=== PATIENT | female | born 1950 | race Caucasian/White ===

== ENCOUNTER 2021-02-07 18:14 | Inpatient (IN) | payer OTHER ==
[2021-02-07 19:30] LABS: Absolute Lymphocytes (CBC) 1.2 K/uL (0.7-4.9); Basophils % 0.5 % (0-1.3); Hematocrit 40.9 % (36.0-45.0); Lymphocytes % 17.9 % (15.3-44.8); RBC Red Blood Cell Count 4.61 M/uL (3.86-4.86)
[2021-02-07 19:33] LABS: Urine Blood Negative (Negative); Urine Glucose Negative (Negative); Urine Protein 1+ (Negative); Urine Specific Gravity 1.025 (1.005-1.030)
[2021-02-07 19:46] LABS: Potassium 4.1 mmol/L (3.5-5.1)
--- NOTE | 2021-02-07 19:54 | RAD REPORT ---
EXAM DESCRIPTION: CT - Stone Protocol - 02/07/2021 7:44 pm CLINICAL HISTORY: Flank pain. FLANK PAIN COMPARISON: Abdomen Pelvis W Contrast dated 01/06/2018 TECHNIQUE: Axial images were obtained without oral or IV contrast. Lack of contrast limits solid org an and vascular assessment. The [id number] spans the entirety of the system partially obscuring uppermost abdomen and lung bases. Coronal reformatted images were obtained and reviewed. All CT scans are performed using dose optimization technique as appropriate and may include automated exposure control or mA/KV adjustment according to patient size. FINDINGS: The lower lung qiu are clear. Imaged portions of the liver and spleen show no suspicious findings on non-contrast imaging. The panc reas and adrenal glands are normal. No pathologic lymphadenopathy in the abdomen or pelvis. No urinary tract stones or obstructive uropathy. No bowel obstruction, free air, free fluid or abscess. Appendectomy.Aortoiliac atherosclerosis. Mild anterolisthesis of L5 on S1 with bilateral spondylolysis, chronic. IMPRESSION: No urinary tract stones or obstructive uropathy.
[2021-02-07 20:13] LABS: Urine Bacteria <20 /HPF (<20); Urine RBC <5 /HPF (NONE SEEN)
--- NOTE | 2021-02-07 20:22 | EDPHYS ---
Physician Documentation [facility] Name: Jaquelin Tamayo Age: 70 yrs Sex: Female : 1950 Arrival Date: 02/07/2021 Time: 18:17 Bed 12 Private MD: Misa Banks C ED Physician Cristian Yip HPI: 02/07 21:07 This 70 yrs old Female presents to ER via Ambulatory with complaints of kb Possible Kidney Stone. 21:07 The patient complains of pain in the right flank. The pain radiates to the right lower kb quadrant. Onset: The symptoms/episode began/occurred 5 day(s) ago, and became worse. Modifying factors: The symptoms are alleviated by nothing. the symptoms are aggravated by nothing. Associated signs and symptoms: The patient has no apparent associated signs or symptoms. Severity of pain: At its worst the pain was moderate in the emergency department the pain is unchanged. The patient has experienced similar episodes in the past, a few times. The patient has not recently seen a physician. Historical: - Allergies: 18:43 No Known Allergies; ld1 - Home Meds: 18:43 aspirin 81 mg Oral chew 1 tab once daily [Active]; levothyroxine 112 mcg tab 1 tab once ld1 daily [Active]; metoprolol tartrate 50 mg Oral tab 1 tab once daily [Active]; omeprazole 40 mg Oral cpDR 1 cap once daily [Active]; zolpidem 5 mg Oral tab 1 tab once daily [Active]; ezetimibe 10 mg oral tab 1 tab once daily [Active]; losartan-hydrochlorothiazide 100-25 mg oral tab 1 tab once daily [Active]; famotidine 40 mg oral tab 1 tab once daily [Active]; escitalopram oxalate 10 mg oral tab 1 tab once daily [Active]; melatonin 5 mg Oral tab [Active]; alprazolam 0.25 mg Oral tab 1 tab 3 times per day [Active]; - PMHx: 18:43 GERD; Hypertension; Hypothyroidism; ld1 - Immunization history:: Adult Immunizations up to date, Client reports receiving the 2nd dose of the Covid vaccine, Pneumococcal vaccine is up to date. - Social history:: Smoking status: unknown. ROS: 21:06 Constitutional: Negative for fever, chills, and weight loss. kb 21:06 Back: Positive for flank pain, on the right. 21:06 All other systems are negative. Exam: 21:06 Constitutional: This is a well developed, well nourished patient who is awake, alert, kb and in no acute distress. Head/Face: Normocephalic, atraumatic. ENT: Moist Mucous membranes Respiratory: Respirations even and unlabored. No increased work of breathing, no retractions or nasal flaring. Skin: Warm, dry with normal turgor. Normal color. MS/ Extremity: Pulses equal, no cyanosis. Neurovascular intact. Full, normal range of motion. Neuro: Awake and alert, GCS 15, oriented to person, place, time, and situation. Moves all extremities. Normal gait. Psych: Awake, alert, with orientation to person, place and time. Behavior, mood, and affect are within normal limits. 21:06 Abdomen/GI: Inspection: abdomen appears normal, Bowel sounds: normal, in all quadrants, Palpation: soft, in all quadrants, mild abdominal tenderness, in the right lower quadrant. 21:06 Back: CVA tenderness, that is moderate, is noted on the right. Vital Signs: 18:40 BP 166 / 100; Pulse 72; Resp 18; Temp 97.8(O); Pulse Ox 97% on R/A; Weight 74.84 kg; ld1 Height 5 ft. 2 in. (157.48 cm); Pain 6/10; 23:00 BP 144 / 76; Pulse 60; Resp 16; Pulse Ox 98% ; Pain 0/10; fu 23:34 BP 135 / 66; Pulse 59; Resp 19; Temp 98.4(O); Pulse Ox 99% on R/A; Pain 1/10; fu 18:40 Body Mass Index 30.18 (74.84 kg, 157.48 cm) ld1 MDM: 19:07 Patient medically screened. patrick 20:19 Data reviewed: vital signs, nurses notes. Data interpreted: Pulse oximetry: on room air kb is 97 %. Interpretation: normal. Counseling: I had a detailed discussion with the patient and/or guardian regarding: the historical points, exam findings, and any diagnostic results supporting the discharge/admit diagnosis, lab results, radiology results, the need for further work-up and treatment in the hospital. Physician consultation: Misa Banks MD was contacted at 20:20, regarding admission, to the telemetry unit. patient's condition, and will see patient in inpatient room. 02/07 18:51 Order name: Urine Microscopic Only; Complete Time: 20:15 kb 02/07 18:51 Order name: Basic Metabolic Panel; Complete Time: 19:49 kb 02/07 18:51 Order name: CBC with Diff; Complete Time: 19:49 kb 02/07 19:32 Order name: Urine Dipstick-Ancillary; Complete Time: 19:35 EDMS 02/07 20:09 Order name: Urine Osmolality 02/07 20:09 Order name: Osmolality, Urine; Complete Time: 20:58 EDMS 02/07 18:51 Order name: CT Stone Protocol; Complete Time: 19:57 kb 02/07 20:11 Order name: UR SODIUM EDMS 02/07 20:11 Order name: Osmolality, Serum; Complete Time: 21:54 EDMS 02/07 20:15 Order name: COVID-19 SARS RT PCR (Document "Date of Onset" if Symptomatic) 02/07 20:17 Order name: SARS-COV-2 RT PCR; Complete Time: 21:54 EDMS 02/07 18:51 Order name: Urine Dipstick-Ancillary (obtain specimen); Complete Time: 19:28 kb 02/07 18:51 Order name: IV Saline Lock; Complete Time: 19:28 kb 02/07 18:51 Order name: Labs collected and sent; Complete Time: 19:28 kb Administered Medications: 20:42 Drug: morphine 4 mg Route: IVP; Site: left antecubital; ja3 22:20 Follow up: Response: Pain is decreased ja3 20:42 Drug: Zofran (Ondansetron) 4 mg Route: IVP; Site: left antecubital; ja3 22:19 Follow up: Response: No adverse reaction ja3 20:43 Drug: NS 0.9% 1000 ml Route: IV; Rate: 75 ml/hr; Site: left antecubital; ja3 Disposition Summary: 02/07/21 20:20 Hospitalization Ordered Hospitalization Status: Inpatient Admission kb Provider: Misa Banks Location: Telemetry/[facility] (Inpatient) kb Condition: Stable kb Problem: new kb Symptoms: are unchanged kb Bed/Room Type: Standard Room Assignment: 231(02/07/21 22:50) cg Diagnosis - flank pain kb - hyponatremia kb Forms: - Medication Reconciliation Form kb - SBAR form kb Addendum: 02/09/2021 09:05 Co-signature as Attending Physician, Cristian Yip MD I agree with the assessment and c olmos plan of care. Signatures: Dispatcher [employer] EDSC Angelica Knight, THERESA-C [employer] COOK-Cristian Dawkins MD MD cha Garcia, Cindy, RN RN Shaggy Boyce RN RN fu Dibbern, Lauren, RN RN ld1 Ismael Jacobs RN RN ja3 Corrections: (The following items were deleted from the chart) 02/07 18:46 18:43 Home Meds: hydrochlorothiazide 25 mg Oral tab 1 tab once daily; ld1 ld1 22:50 20:20 kb
--- NOTE | 2021-02-07 20:22 | ER ---
Nurse's Notes [facility] Name: Jaquelin Tamayo Age: 70 yrs Sex: Female : 1950 Arrival Date: 02/07/2021 Time: 18:17 Bed 12 Private MD: Misa Banks C Diagnosis: flank pain;hyponatremia Presentation: 02/07 18:40 Chief complaint: Patient states: "I think I am passing a kidney stone." Pt reporting ld1 right flank pain and RLQ pain. Difficulty urinating and retention. Coronavirus screen: At this time, the client does not indicate any symptoms associated with coronavirus-19. Ebola Screen: No symptoms or risks identified at this time. Initial Sepsis Screen: Does the patient meet any 2 criteria? No. Patient's initial sepsis screen is negative. Does the patient have a suspected source of infection? No. Patient's initial sepsis screen is negative. Risk Assessment: Do you want to hurt yourself or someone else? Patient reports no desire to harm self or others. Onset of symptoms was February 07, 2021. 18:40 Method Of Arrival: Ambulatory ld1 18:40 Acuity: CRUZ 3 ld1 Triage Assessment: 18:43 General: Appears in no apparent distress. comfortable, Behavior is calm, cooperative, ld1 appropriate for age. Pain: Complains of pain in right low back and right lower quadrant Pain does not radiate. Pain currently is 7 out of 10 on a pain scale. Quality of pain is described as sharp, throbbing. Neuro: Level of Consciousness is awake, alert, obeys commands, Oriented to person, place, time, situation. Cardiovascular: Capillary refill < 3 seconds Patient's skin is warm and dry. Respiratory: Airway is patent Respiratory effort is even, unlabored, Respiratory pattern is regular, symmetrical. GI: Abdomen is round non-distended. : Reports urgency, urinary frequency. Historical: - Allergies: 18:43 No Known Allergies; ld1 - Home Meds: 18:43 aspirin 81 mg Oral chew 1 tab once daily [Active]; levothyroxine 112 mcg tab 1 tab once ld1 daily [Active]; metoprolol tartrate 50 mg Oral tab 1 tab once daily [Active]; omeprazole 40 mg Oral cpDR 1 cap once daily [Active]; zolpidem 5 mg Oral tab 1 tab once daily [Active]; ezetimibe 10 mg oral tab 1 tab once daily [Active]; losartan-hydrochlorothiazide 100-25 mg oral tab 1 tab once daily [Active]; famotidine 40 mg oral tab 1 tab once daily [Active]; escitalopram oxalate 10 mg oral tab 1 tab once daily [Active]; melatonin 5 mg Oral tab [Active]; alprazolam 0.25 mg Oral tab 1 tab 3 times per day [Active]; - PMHx: 18:43 GERD; Hypertension; Hypothyroidism; ld1 - Immunization history:: Adult Immunizations up to date, Client reports receiving the 2nd dose of the Covid vaccine, Pneumococcal vaccine is up to date. - Social history:: Smoking status: unknown. Screenin:33 Abuse screen: Denies threats or abuse. Nutritional screening: No deficits noted. fu Tuberculosis screening: No symptoms or risk factors identified. Fall Risk None identified. Assessment: 19:33 General: Appears in no apparent distress. Behavior is calm, cooperative, appropriate fu for age. Pain: Complains of pain in abdomen and back and right lower quadrant and right low back Pain radiates to right leg Aggravated by movement. Neuro: Level of Consciousness is awake, alert, obeys commands, Oriented to person, place, time, situation, Moves all extremities. Gait is steady, Speech is normal, Facial symmetry appears normal. GI: Bowel sounds present X 4 quads. Abd is soft. : Reports difficulty voiding. Derm: Skin is intact, Skin is dry, Skin is pink, warm \\T\\ dry. Skin temperature is warm. 21:18 Reassessment: Patient and/or family updated on plan of care and expected duration. Pain ja3 level reassessed. Patient is alert, oriented x 3, equal unlabored respirations, skin warm/dry/pink. 22:42 Reassessment: Patient and/or family updated on plan of care and expected duration. Pain fu level reassessed. Patient is alert, oriented x 3, equal unlabored respirations, skin warm/dry/pink. Patient states feeling better. Vital Signs: 18:40 BP 166 / 100; Pulse 72; Resp 18; Temp 97.8(O); Pulse Ox 97% on R/A; Weight 74.84 kg; ld1 Height 5 ft. 2 in. (157.48 cm); Pain 6/10; 23:00 BP 144 / 76; Pulse 60; Resp 16; Pulse Ox 98% ; Pain 0/10; fu 23:34 BP 135 / 66; Pulse 59; Resp 19; Temp 98.4(O); Pulse Ox 99% on R/A; Pain 1/10; fu 18:40 Body Mass Index 30.18 (74.84 kg, 157.48 cm) ld1 ED Course: 16:15 Inserted saline lock: 20 gauge in left antecubital area, using aseptic technique. Blood fu collected. 18:17 Patient arrived in ED. as 18:17 Misa Banks MD is Private Physician. as 18:43 Triage completed. ld1 18:43 Arm band placed on left wrist. ld1 18:51 Angel[facility]C [facility]. kb 18:51 Cristian Yip MD is Attending Physician. kb 19:09 Shaggy Jones RN is Primary Nurse. fu 19:44 CT Stone Protocol In Process Unspecified. EDMS 20:20 Misa Banks MD is Hospitalizing Provider. kb 20:25 Urine Osmolality Sent. ja3 20:25 UR SODIUM Sent. ja3 20:42 COVID-19 SARS RT PCR (Document "Date of Onset" if Symptomatic) Sent. ja3 22:00 Patient has correct armband on for positive identification. Bed in low position. Call ja3 light in reach. 22:16 No provider procedures requiring assistance completed. Patient did not have IV access ja3 during this emergency room visit. Administered Medications: 20:42 Drug: morphine 4 mg Route: IVP; Site: left antecubital; ja3 22:20 Follow up: Response: Pain is decreased ja3 20:42 Drug: Zofran (Ondansetron) 4 mg Route: IVP; Site: left antecubital; ja3 22:19 Follow up: Response: No adverse reaction ja3 20:43 Drug: NS 0.9% 1000 ml Route: IV; Rate: 75 ml/hr; Site: left antecubital; ja3 Outcome: 20:20 Decision to Hospitalize by Provider. kb 23:33 Admitted to Med/surg accompanied by tech, room 231, Report called to SEN Bradshaw fu 23:33 Condition: stable 23:33 Instructed on the need for admit, Demonstrated understanding of instructions. 1103 00:34 Patient left the ED. ja3 Signatures: Dispatcher [employer] EDMS Flavio Knightistin, THERESA-Joni CARDEANS-Fabi Gilliam Felix RN Marta Crenshaw RN RN ld1 Ismael Jacobs RN RN ja3 Corrections: (The following items were deleted from the chart) 02/07 18:43 18:40 Pulse 72bpm; Resp 18bpm; Pulse Ox 97% RA; Temp 97.8F Oral; 74.84 kg; Height 5 ft. ld1 2 in.; BMI: 30.1; Pain 6/10; ld1 18:46 18:43 Home Meds: hydrochlorothiazide 25 mg Oral tab 1 tab once daily; ld1 ld1 22:17 22:15 Discharged to home ambulatory, ja3 ja3 22:17 22:15 Condition: good ja3 ja3 22:17 22:15 Discharge instructions given to patient, Instructed on discharge instructions, ja3 follow up and referral plans. Demonstrated understanding of instructions, follow-up care, Prescriptions given X 1, ja3
[2021-02-07] MEDS ORDERED: ONDANSETRON 4 MG/2 ML VIAL ONE (20:35)
[2021-02-07] MEDS ORDERED: MORPHINE 4 MG/ML SYR ONE (20:35)
[2021-02-07] MEDS ORDERED: NA CHLORIDE 0.9% 1,000 ML ONE (20:35)
[2021-02-07] MEDS ORDERED: ONDANSETRON 4 MG/2 ML VIAL IV PRN (23:56)
[2021-02-07] MEDS: NA CHLORIDE 0.9% 1,000 ML IV SCH (23:56)
[2021-02-08 01:51] VITALS: BMI 30.2
[2021-02-08 05:47] LABS: Absolute Lymphocytes (CBC) 1.4 K/uL (0.7-4.9); Basophils % 0.4 % (0-1.3); Hematocrit 35.3 % (36.0-45.0); Lymphocytes % 22.6 % (15.3-44.8); MPV 5.9 fL (7.6-11.3); RBC Red Blood Cell Count 3.96 M/uL (3.86-4.86)
[2021-02-08 06:08] LABS: Potassium 3.8 mmol/L (3.5-5.1); Thyroid Stimulating Hormone 5.63 uIU/mL (0.360-3.740)
[2021-02-08] MEDS ORDERED: COSYNTROPIN 0.25 MG VIAL IV ONE (08:00)
[2021-02-08] MEDS ORDERED: SODIUM CHLORIDE 0.9% 10ML INJ IV ONE (08:00)
[2021-02-08] MEDS: ASPIRIN EC 81 MG TAB PO SCH (08:46)
[2021-02-08] MEDS: METOPROLOL TAR 50 MG TAB PO SCH ×2 (08:46→21:14)
[2021-02-08] MEDS: ENOXAPARIN 40 MG/0.4 ML SQ SCH (08:46)
[2021-02-08] MEDS: ESCITALOPRAM 20 MG TAB PO SCH (08:47)
[2021-02-08] MEDS: EZETIMIBE 10 MG TAB PO SCH (08:47)
[2021-02-08] MEDS: FAMOTIDINE 20 MG TAB PO SCH (08:48)
[2021-02-08] MEDS: NA CHLORIDE 0.9% 1,000 ML IV SCH (09:06)
[2021-02-08 09:53] LABS: Albumin 3.6 g/dL (3.4-5.0); Bilirubin Total 0.6 mg/dL (0.2-1.0); Potassium 3.5 mmol/L (3.5-5.1); Protein, Total 7.1 g/dL (6.4-8.2)
--- NOTE | 2021-02-08 10:56 | RAD REPORT ---
EXAM DESCRIPTION: Lee Mccracken (2 Views)02/08/2021 10:44 am CLINICAL HISTORY: hyponatremia COMPARISON: 2014 FINDINGS: The lungs appear clear of acute infiltrate. The heart is normal size IMPRESSION: No acute abnormalities displayed
--- NOTE | 2021-02-08 12:30 | CON ---
Date of Consultation: 02/08/2021 Reason For Consultation: Abdominal pain. History Of Present Illness: The patient is a 70-year-old female, who came in yesterday with right fl ank pain, radiating to the right lower abdomen, going to the thigh, which was started approximately 5 days ago and progressively gotten worse. She denies any nausea or vomiting. No diarrhea or constip ation. No blood in her stools. No hematuria. Minimal dysuria. No sore throat, runny nose, cough, headaches, or dizziness. No chest pain. No fever or chills. Review of Systems: Otherwise unremarkable. Past Medical History: Significant for hypertension, hypothyroidism, and GERD. Past Surgical History: Significant for hysterectomy, appendectomy, and tonsillectomy. Allergies: NONE. Social History: The patient used to be a former smoker for about 24 years about a pack a day and she drinks occasionally. Family History: Noncontributory. Physical Examination: Vital Signs: Currently stable. She is afebrile. General: She is awake, alert, and oriented x3. Head and Neck: Cranial nerves 2 through 12 are grossly within normal limits. No neck masses. No JV D. Throat clear. Neck is supple. Chest: Clear. Heart: S1, S2. Abdomen: Soft, nondistended, nontender. Positive bowel sounds. No CVA tenderness. Extremities: Adequately perfused. Nontender. Neuro: Nonfocal. Laboratory Data: Reviewed. White count is normal. There is no left shift. Chemistry shows sodium of 124 which is being corrected. Urinalysis is negative except for a little bit of 1+ protein. COVI D test was negative. CT of the abdomen and pelvis reviewed with radiologist as well as the MRA done a few years back. The CT shows no urinary tract stones or obstructive uropathy. It was a stone prot ocol. 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 Assessment: A 70-year-old female with multiple medical problems with abdominal pain, hyponatremia, e tiology could be adhesions, could be ischemic bowel given her history of stenosis of the mesenteric v essels. Recommendations: Medical management per Dr. Banks and Lucinda will go and order an MRA to see her current s tatus as far as the stenosis of the mesentery vessels or concerns to see if she needs any interventio n regarding that. At this time, there is no need for any acute surgical intervention. We will follo w the patient while in the hospital. /MODL Voice ID: [id number] Report ID: [id number]
--- NOTE | 2021-02-08 12:55 | RAD REPORT ---
EXAM DESCRIPTION: MRI - MRA Abdomen W/Wo Cont - 02/08/2021 12:10 pm CLINICAL HISTORY: see blood vessels in the abdomen COMPARISON: MRA Abdomen W/Wo Cont dated 11/01/2016; Stone Protocol dated 02/07/2021 FINDINGS: Moderate focal stenosis of the right renal artery approximately 3 cm from the renal ostia. The left renal artery is widely patent. Moderate stenosis is present at the celiac trunk, presumably due to compression by the median arcuate ligament. There is very mild poststenotic dilatation. Mild less than 50% stenosis is present at the SMA. No high-grade stenosis is noted. The MARKO is patent. The re is some ectasia of the iliac vessels but no aneurysm. The abdominal aorta atherosclerotic plaque a long its course, particularly in the infrarenal portion but no aneurysm. IMPRESSION: No high grade stenoses identified. Findings are as noted above. No aneurysm.
[2021-02-08] MEDS: MORPHINE 4 MG/ML SYR IV PRN ×2 (18:22→22:54)
[2021-02-08 19:54] LABS: Absolute Lymphocytes (CBC) 1.4 K/uL (0.7-4.9); Basophils % 0.6 % (0-1.3); Hematocrit 35.7 % (36.0-45.0); Lymphocytes % 20.8 % (15.3-44.8); MPV 6.1 fL (7.6-11.3); RBC Red Blood Cell Count 3.98 M/uL (3.86-4.86)
[2021-02-08 20:07] LABS: Potassium 4.2 mmol/L (3.5-5.1)
[2021-02-08] MEDS ORDERED: FUROSEMIDE 20 MG/ 2ML VIAL IV ONE (20:19)
[2021-02-09] MEDS: NA CHLORIDE 0.9% 1,000 ML IV SCH (00:48)
[2021-02-09] MEDS ORDERED: LEVOTHYROXINE SOD 0.125 MG TAB PO SCH (06:00)
[2021-02-09 06:06] LABS: Potassium 3.9 mmol/L (3.5-5.1)
--- NOTE | 2021-02-09 08:41 | RAD REPORT ---
EXAM DESCRIPTION: MRI - Lumbar Spine Wo Con - 02/09/2021 8:17 am CLINICAL HISTORY: Radiculopathy and back pain COMPARISON: None. TECHNIQUE: Sagittal T1, T2 and STIR weighted sequences were obtained. Axial T1 and T2 sequences were obtained through the lumbar disc levels. FINDINGS: Small right lateral disc herniation L1-2 A small right lateral disc herniation L2-3. Abnormal signal involves the vertebral endplates of L2 on L3 probably degenerative. Mild spondylosis L3-4 disc is thinned. Diffuse disc bulge, osteophytes, ligamentum flavum and facet hypertrophy. Small right lateral disc herniation. Moderate narrowing the right neural foramina. Small right paracentral disc pain medel L4-5. Ligamentum flavum and facet hypertrophy. Disc bulge. Mil d narrowing of the thecal sac. Mild to moderate narrowing of the neural foramina. Abnormal signal inv olves the vertebral endplates of L4 and L5. Mild anterior subluxation of L5 on S1. Spondylolysis. Disc is thinned. Disc bulge. Mild narrowing of the neural foramina. IMPRESSION: Small right lateral disc herniations L1-2 and L2-3 Small right lateral disc herniation L3-4. This in combination with spondylosis result in moderate rig ht foraminal stenosis Small right paracentral disc herniation L4-5. Abnormal signal involving the vertebral endplates proba cynthia degenerative in nature. Inflammation/infection can also have this appearance and should be correl ated clinically and with appropriate lab values Mild anterior subluxation of L5 on S1 with spondylolysis L5.
[2021-02-09 09:08] VITALS: O2SAT 98
[2021-02-09] MEDS: FAMOTIDINE 20 MG TAB PO SCH (10:49)
[2021-02-09] MEDS: ESCITALOPRAM 20 MG TAB PO SCH (10:49)
[2021-02-09] MEDS: METOPROLOL TAR 50 MG TAB PO SCH (10:49)
[2021-02-09] MEDS: ASPIRIN EC 81 MG TAB PO SCH (10:49)
[2021-02-09] MEDS: EZETIMIBE 10 MG TAB PO SCH (10:49)
[2021-02-09] MEDS: ENOXAPARIN 40 MG/0.4 ML SQ SCH (10:50)
[2021-02-09 12:59] VITALS: BP 126/83; TEMP 97
--- NOTE | 2021-02-09 16:07 | PN ---
Date of Progress Note: 02/09/2021 Subjective: The patient is awake, alert, feels much better. Pain is better. MRA reviewed, no signi ficant stenosis noted. Lumbar MRI also reviewed, mild disease present. Physical exam notes, vital stable, afebrile. Physical exam, no changes. Assessment: Abdominal pain etiology could be adhesions at this time or could be radiculopathy. I di scussed the case with Dr. Kaur, he is going to try a Medrol Dosepak and see how the patient responds and he will follow up with her as an outpatient. There is no need for any surgical intervention at this time. We counseled juan BOYCE/KARIME Voice ID: [id number] Report ID: [id number]
--- NOTE | 2021-02-10 17:26 | DS ---
Date of Discharge: 02/09/2021 Disposition: Discharged to go home. Physical Examination: HEENT: Unremarkable. Lungs: Clear to auscultation. Heart: Sounds normal. Abdomen: Soft. Bowel sounds normal. No guarding, rigidity, tenderness, distention noted. The antonio ent has very minimal area of tenderness in the right lower quadrant, which is much better today than yesterday. Extremities: No leg edema. Discharge Medications And Instructions: 1.Continue all prior home medication except stop losartan/HCTZ. 2.Follow up at my office next week on 02/15/2021 at 10 a.m. 3.Take prednisone 10 mg take 2 tablets 2 times a day for 4 days, then 2 tablets daily for 4 days, th en 1 tablet daily for 4 days, then 1/2 tablet daily for 4 days, then stop; take it with food. 4.Tylenol 4 times a day as needed for pain and the patient picked up this prescription from my offic e after discharged from the hospital and prescription was given for 30 tablets, no refills. Laboratory Data: Last chemistry today; sodium 129, potassium 3.9, chloride 96, bicarb 28, BUN 13, cr eatinine 0.74, glucose 93. Upon admission, her sodium level was 124. Her serum osmolality 259. TSH 5.6, LDL 72, triglycerides 73. Cortisol stimulation test was normal. Last CBC from yesterday; whit e count 6.7, hemoglobin 12.3, platelets 285. MRA of abdomen shows evidence of right renal artery siria nosis. Also some stenosis of the superior mesenteric artery and celiac trunk. There was no evidence of any hemodynamically significant stenotic lesion. MRI of lumbar spine shows evidence of lumbar sp ondylosis with multiple areas of bulging disk and herniated disk. Hospital Course: A 70-year-old female patient admitted to the hospital with complaints of right lowe r quadrant pain and also pain in right lateral flank radiating down to right lateral thigh. Please s ee dictated H and P for more information. After patient was evaluated in the ER, she was admitted to the hospital. CAT scan of the abdomen done in the emergency room was unremarkable for any acute fin dings. Because of her right lower quadrant tenderness, general surgeon, Dr. Lopez was consulted and he ordered MRA of abdomen, which did not show any significant hemodynamically stenotic lesion. The p atient does not have any rash in the area of pain indicating any evidence of zoster, but I did inform her it that in case if she notices any rash in this area, she will need to contact me right away. I suspected that she might have radicular pain from lumbar spondylosis and MRI of lumbar spine was don e today and I have discussed result with her and advised her to start taking prednisone. Overall, th e patient's condition is stable for discharge and I will see her next week for followup. Final Diagnoses: 1.Lumbar spondylosis with radiculopathy. 2.Right lower quadrant abdominal pain. 3.Hypertension. 4.Hyperlipidemia. 5.Hyponatremia. MC/MODL Voice ID: [id number] Report ID: [id number]
== END 2021-02-09 16:45 | disposition home or self-care (01) | DRG 552 ==
LOC: ER 18:14 → ERHOLD 20:14 → 2ND 23:26
PROVIDERS: ADMIT Internal Medicine; ATTEND Internal Medicine
DX: M47.26 Other spondylosis with radiculopathy, lumbar region (principal); E87.1 Hypo-osmolality and hyponatremia; R10.31 Right lower quadrant pain; I10 Essential (primary) hypertension; E03.9 Hypothyroidism, unspecified; K21.9 Gastro-esophageal reflux disease without esophagitis; E78.5 Hyperlipidemia, unspecified; Z87.891 Personal history of nicotine dependence; Z20.822 Contact with and (suspected) exposure to COVID-19
CPT/HCPCS: 36415; 71046; 72148; 74176; 76377; 80048; 80053; 80061; 81003; 81015; 82024; 82533; 83930; 83935; 84300; 84439; 84443; 85025; 96374; 96375; 99285; A9577; C8902; J0834; J1650; J1940; J2405; J7030; U0003